=== PATIENT | male | born 2000 | race Caucasian/White ===

== ENCOUNTER 2022-11-10 10:14 | Emergency (ER) | payer SELFPAY ==
[~2022-11-10] VITALS: Ht 175.3 cm; Wt 87.7 kg
[2022-11-10 10:16] VITALS: TEMP 98.4
[2022-11-10] MEDS ORDERED: PERTUSS(ACELL),DIPH,TET VAC/PF 0.5 ML SYRINGE IM. ONE (11:15)
[2022-11-10] MEDS ORDERED: LIDOCAINE 1% 10 ML VIAL SQ ONE (11:15)
[2022-11-10 12:15] VITALS: BP 121/77; PULSE 88; RESP 16
== END 2022-11-10 12:21 | disposition home or self-care (01) ==
LOC: EMS 10:20
DX: S01.111A Laceration without foreign body of right eyelid and periocular area, initial encounter (principal); X58.XXXA Exposure to other specified factors, initial encounter; Y93.66 Activity, soccer; Y92.89 Other specified places as the place of occurrence of the external cause; Y99.8 Other external cause status
CPT/HCPCS: 99283; 90715; 90471; J3490